=== PATIENT | male | born 1965 | race Caucasian/White ===

== ENCOUNTER → 2017-02-01 | Outpatient (CLI) | payer OTHER | LOC: HEART 5 14:20 | DX: Z00.00 Encounter for general adult medical examination without abnormal findings (principal); E78.00 Pure hypercholesterolemia, unspecified; J44.9 Chronic obstructive pulmonary disease, unspecified | CPT/HCPCS: 94060; 94729 ==

== ENCOUNTER → 2017-02-10 | Outpatient (CLI) | payer OTHER | LOC: EMI 13:48 | DX: G12.20 Motor neuron disease, unspecified (principal); Z53.9 Procedure and treatment not carried out, unspecified reason ==

== ENCOUNTER → 2017-02-25 | Outpatient (CLI) | payer OTHER | LOC: EMI 02-18 14:00 | DX: G12.20 Motor neuron disease, unspecified (principal) | CPT/HCPCS: 70553; 72156; A9577; J7050 ==